=== PATIENT | male | born 1955 | race Caucasian/White ===

== ENCOUNTER 2019-04-16 13:29 | Emergency (ER) | payer BC ==
[2019-04-16 14:01] VITALS: BP 128/85
--- NOTE | 2019-04-16 15:19 | UC ---
Skin Complaint HPI - HPI Summary HPI Summary: 63 yo male with skin rash on cheeks and forehead x > 1 year He has an appt with a white washer in 4 days Has a date tonight and wants to make sure it is not contagious - History of Current Complaint Chief Complaint: [facility] Time Seen by Provider: 04/16/19 14:57 Stated Complaint: SKIN COMPLAINT Hx Obtained From: Patient Onset/Duration: Gradual Onset, Lasting Weeks - months Timing: Constant - waxes and wanes Onset Severity: Mild Current Severity: Mild Pain Intensity: 0 Pain Scale Used: 0-10 Numeric Location: Face Character: Redness, Raised Aggravating Factor(s): Nothing Associated Signs & Symptoms: Positive: Rash - Allergy/Home Medications Allergies/Adverse Reactions: Allergies Allergy/AdvReac Type Severity Reaction Status Date / Time No Known Allergies Allergy Verified 04/16/19 14:02 Home Medications: Home Medications Tadalafil [Cialis] 5 mg PO DAILY PRN 04/16/19 [History Confirmed 04/16/19] PMH/Surg Hx/FS Hx/Imm Hx Previously Healthy: Yes - Surgical History Surgical History: Yes Surgery Procedure, Year, and Place: PUNCTURED LUNG 1971 - Family History Known Family History: Positive: Hypertension - Social History Alcohol Use: Occasionally Substance Use Type: None Smoking Status (MU): Never Smoked Tobacco Review of Systems All Other Systems Reviewed And Are Negative: Yes Constitutional: Positive: Negative Skin: Positive: Rash Eyes: Positive: Negative ENT: Positive: Negative Respiratory: Positive: Negative Cardiovascular: Positive: Negative Gastrointestinal: Positive: Negative Genitourinary: Positive: Negative Motor: Positive: Negative Neurovascular: Positive: Negative Musculoskeletal: Positive: Negative Neurological/Mental Status: Positive: Negative Psychological: Positive: Negative Physical Exam Triage Information Reviewed: Yes Appearance: Well-Appearing, No Pain Distress, Well-Nourished Vital Signs: Initial Vital Signs Temp 98.2 F 04/16/19 13:57 Pulse 68 04/16/19 13:57 Resp 14 04/16/19 13:57 BP 128/85 04/16/19 13:57 Pulse Ox 99 04/16/19 13:57 Vital Signs Reviewed: Yes Eyes: Positive: Conjunctiva Clear ENT: Positive: Hearing grossly normal, Uvula midline. Negative: Nasal congestion, Nasal drainage, Tonsillar swelling, Tonsillar exudate, Trismus, Muffled voice, Hoarse voice Neck: Positive: Supple, Nontender, No Lymphadenopathy Respiratory: Positive: Lungs clear, Normal breath sounds, No respiratory distress, No accessory muscle use Cardiovascular: Positive: RRR, No Murmur Abdomen Description: Positive: Nontender Bowel Sounds: Positive: Present Musculoskeletal: Positive: ROM Intact, No Edema Neurological: Positive: Alert Psychological Exam: Normal Skin Exam: Other - face- red papules/small pustules/prominent vessels few AKs, Course/Dx - Diagnoses Provider Diagnosis: Rosacea Discharge ED - Sign-Out/Discharge Documenting (check all that apply): Patient Departure All imaging exams completed and their final reports reviewed: No Studies - Discharge Plan Condition: Stable Disposition: HOME Patient Education Materials: Rosacea (ED) Additional Instructions: See white washer in 4 days as planned You have a lot of sun damaged skin and need to be followed by a white washer - Billing Disposition and Condition Condition: STABLE Disposition: Home
== END 2019-04-16 15:20 | disposition home or self-care (01) ==
LOC: UCCORT 13:29
DX: L71.9 Rosacea, unspecified (principal)
CPT/HCPCS: 99201; G0463